=== PATIENT | male | born 1970 | race Caucasian/White ===

== ENCOUNTER → 2021-06-29 | Outpatient (CLI) | payer OTHER ==
--- NOTE | 2021-06-29 15:14 | CONS ---
CONSULTATION DATE OF SERVICE: 06/29/2021 This 50-year-old gentleman has been evaluated in [facility] for obstructive sleep apnea-hypopnea syndrome, daytime sleepiness, [id number] movements twitching arms and legs during the night. HISTORY OF PRESENT ILLNESS/SLEEP-WAKE EVALUATION: Patient's usual sleep schedule is from 10:30 p.m. to 7 or 7:30 a.m., 7 days a week. He does have problems with falling asleep, although no TV in bedroom. He sleeps usually on the back position with loud snoring. About 12 years ago the patient was diagnosed with obstructive sleep apnea in another institution and was started on treatment with CPAP. He stopped using CPAP about 10 years ago. At present he wakes up from sleep up to 5 times, with up to 3 episodes of nocturia. Positive history body twitching, arm waving in the air, and sometimes awakenings while seeing dreams. No history of falling out of bed. No history of sleepwalking. Possibly positive history of hypnagogic hallucinations. No history of sleep paralysis or cataplexy. In the morning the patient wakes up tired, has difficulties paying attention, falling asleep during the day, worries about his sleep, has problems with memory, concentration, depression, anxiety, sexual dysfunction. Cecil Sleepiness Scale increased to 13, and this is while the patient is on treatment with Adderall 20 mg twice a day. PAST MEDICAL HISTORY: Positive for hypertension, hyperlipidemia, headaches, acid reflux, depression, anxiety. PAST SURGICAL HISTORY: Left leg surgery for fracture and right femur surgery for fracture. MEDICATIONS: 1. Adderall 20 mg twice a day. 2. Abilify 20 mg once a day. 3. Lexapro 10 mg once a day. 4. Metoprolol 50 mg once a day. 5. Valium 5 mg as needed. SOCIAL HISTORY: Negative for smoking. Alcohol consumption: None at the present time. FAMILY HISTORY: Positive for sleep apnea, heart problems, stroke, asthma, pituitary tumor, acid reflux, mental illness. REVIEW OF SYSTEMS: Snoring, multiple awakenings from sleep, sleepiness during the day, movements during the night. No fevers. No double vision. No recent chest pain. No shortness of breath. No abdominal pain. No bleeding episodes. No blood in the urine. No seizure episodes. PHYSICAL EXAMINATION: GENERAL: Pleasant gentleman without distress. VITAL SIGNS: BP 136/88, HR 68, RR 14, height 6 feet 0 inches, weight 200.2 pounds, body mass index 27.1, temperature 97.2, oxygen saturation at room air 97%. HEENT: PERRLA, EOMI, evaluation of oropharynx showed tongue protrudes midline. Extremely low position of soft palate; Mallampati IV. NECK: Supple, no JVD. Thyroid is not palpable. Neck is 17 inches in circumference. LUNGS: Clear to percussion and to auscultation. Good air exchange. No wheezing or rhonchi. HEART: S1, S2 regular. No murmurs, gallops, or rubs. ABDOMEN: Soft and nontender. Bowel sounds are present. No organomegaly appreciated. EXTREMITIES: No clubbing or cyanosis. NONPROFIT FUNDRAISER: Awake, alert, and oriented X3. Cranial nerves 2 to 7 intact. There is no fasciculation or atrophy. noted. No focal deficits observed. IMPRESSION: 1. Loud snoring, multiple awakenings from sleep with nocturia, extremely low position of soft palate, Mallampati IV, wide neck, 17 inches in circumference, sleepiness, Cecil Sleepiness Scale increased to 13 while patient is on treatment with Adderall; obstructive sleep apnea-hypopnea syndrome. 2. History of uem-sw-iqram movements; possibly REM sleep behavioral disorder. 3. Significant excessive daytime sleepiness. Cecil Sleepiness Scale is 13 while patient is on treatment with Adderall, dictating necessity to include hypersomnia and narcolepsy in differential diagnosis. 4. History of twitching legs and arms during the night; possibly periodic limb movements. 5. Hypertension. 6. Hyperlipidemia. 7. Headaches. 8. Acid reflux. 9. History of depression. 10.History of anxiety. 11.Status post left leg fracture in the past with surgical treatment. 12.Status post right femur fracture and surgical treatment in the past. PLAN: 1. Polysomnography for evaluation of patient's breathing during sleep. 2. CPAP/BiPAP titration if sleep study confirms obstructive sleep apnea-hypopnea syndrome. 3. Preferable position during sleep on the side. 4. No driving if patient feels any sleepiness. 5. I will see patient for follow up visit to explain results of testing and following plan. 6. After obstructive sleep apnea-hypopnea syndrome is treated, if the patient continues to have any sleepiness, he will need a multiple sleep latency test. Thank you very much for referring this patient for consultation. Sincerely, Dave Israel MD, PhD, FAASM Diplomat of [employer] Sleep Medicine Board of [employer] Professional of [facility] [place] MMODL / SHAANN: [id number] /
== END | disposition home or self-care (01) ==
LOC: SLEEP 11:48
PROVIDERS: ATTEND Internal Medicine
DX: G47.33 Obstructive sleep apnea (adult) (pediatric) (principal); I10 Essential (primary) hypertension; E78.5 Hyperlipidemia, unspecified; R51.9 Headache, unspecified; K21.9 Gastro-esophageal reflux disease without esophagitis; Z86.59 Personal history of other mental and behavioral disorders; Z98.890 Other specified postprocedural states; Z86.69 Personal history of other diseases of the nervous system and sense organs
CPT/HCPCS: 99202

== ENCOUNTER → 2021-09-06 | Outpatient (CLI) | payer OTHER ==
--- NOTE | 2021-09-07 14:46 | SFUN ---
SLEEP CENTER FOLLOW UP NOTE DATE OF SERVICE: 09/06/2021 This 51-year-old gentleman, followed in Sleep Center, has come in to discuss results of his polysomnogram and following plan. I discussed results of his sleep studies with the patient in detail. No significant respiratory abnormalities during the sleep test. Oxygen level was below normal only for 0.3 minute. No significant periodic limb movements were documented. The patient continues to have symptoms of excessive daytime sleepiness. Towson Sleepiness Scale is in high range at 16. The patient has out of [id number] movements during sleep, and also leg movements during REM sleep were documented during the sleep study. MEDICATIONS: Adderall 20 mg twice a day, Abilify 10 mg once a day, metoprolol 50 mg once a day, simvastatin, Valium. PHYSICAL EXAMINATION: GENERAL: Pleasant patient in no distress. VITAL SIGNS: BP 121/72, HR 53, RR 14, temperature 97.1, oxygen saturation at room air 98%. HEENT: PERRLA, EOMI, evaluation of oropharynx showed tongue protrudes midline. Extremely low position of soft palate; Mallampati IV. NECK: Supple, no JVD. Thyroid is not palpable. LUNGS: Clear to percussion and to auscultation. Good air exchange. No wheezing or rhonchi. HEART: S1, S2 regular. No murmurs, gallops, or rubs. ABDOMEN: Soft and nontender. Bowel sounds are present. No organomegaly appreciated. EXTREMITIES: No clubbing or cyanosis. JOB CHECKER: Awake, alert, and oriented X3. Cranial nerves 2 to 7 intact. There is no fasciculation or atrophy. noted. No focal deficits observed. IMPRESSION: 1. No significant respiratory abnormalities during the sleep study. 2. Significant amount of movements of legs during REM sleep; possible REM sleep behavioral disorder. 3. The patient continues to feel significant sleepiness during the day. Towson Sleepiness Scale increased to 16. Differential diagnosis includes hypersomnia and narcolepsy, and that with taking Adderall 20 mg twice a day. 4. Hypertension. 5. Hyperlipidemia. 6. Headaches. 7. Acid reflux. 8. History of depression. 9. History of anxiety. 10.Status post left leg fracture in the past with surgical treatment. 11.Status post right femur fracture and surgical treatment in the past. PLAN: 1. I will start the patient on the lowest dose of clonazepam at night to prevent leg movements; 0.5 mg before bed. 2. We will proceed with polysomnogram and following multiple sleep latency test for objective evaluation of patient's symptoms of significant excessive daytime sleepiness. 3. Precautions related to driving. No driving if feeling any sleepiness. 4. Sleep hygiene with regular time bed for at least 8 hours. 5. Following plan after reviewing results of sleep study after reviewing results of MSLT. The patient should not take Adderall on the day of MSLT. No Valium during the day of MSLT, either. Thank you very much for allowing me to participate in the management of your patient. Sincerely, Dave Israel MD, PhD, FAASM Diplomat of [employer] Sleep Medicine Board of [employer] [facility] [place] RINA / KENDALL: [id number] /
== END ==
LOC: SLEEP 14:13
PROVIDERS: ATTEND Internal Medicine
DX: G47.10 Hypersomnia, unspecified (principal); I10 Essential (primary) hypertension; E78.5 Hyperlipidemia, unspecified; K21.9 Gastro-esophageal reflux disease without esophagitis; F32.A Depression, unspecified; F41.9 Anxiety disorder, unspecified; Z87.81 Personal history of (healed) traumatic fracture; Z98.890 Other specified postprocedural states; Z79.899 Other long term (current) drug therapy